=== PATIENT | female | born 1945 | race Caucasian/White ===

== ENCOUNTER 2023-12-22 11:17 | Outpatient (CLI) | payer OTHER ==
[2023-12-22 12:11] LABS: PH,URINE 7.5 (5.0-8.0); URINE APPEARANCE Cloudy; URINE BILIRRUBIN Negative (NEGATIVE); URINE BLOOD Negative; URINE COLOR Yellow; URINE GLUCOSE Negative (NEGATIVE); URINE LEUKOCYTE Large; URINE NITRATE Negative; URINE PROTEIN Negative (NEGATIVE); URINE UROBILINOGEN 0.2 E.U./dl
[2023-12-22 12:15] LABS: URINE BACTERIA 481.1 uL (0.0-1933); URINE EPITHELIAL CELLS 6.8 uL (0.0-38.8); URINE RBC 6.8 uL (0.0-20.8); URINE WBC 83.6 uL (0.0-23.2)
[2023-12-22 12:21] LABS: HEMATOCRIT 26.3 % (36.0-45.00); MEAN CORPUSCULAR HGB CONC 30.2 g/dl (32.0-36.0); PLATELET COUNT 339 K/uL (150-450); RED BLOOD COUNT 4.01 M/uL (4.00-6.00); RED CELL DISTRIBUTION WIDTH 21.2 % (11.5-14.5)
[2023-12-22 12:31] LABS: MEAN CORPUSCULAR HEMOGLOBIN 19.7 pg (27.00-32.0)
[2023-12-22 12:38] LABS: MEAN CELL VOLUME 65.7 fL (80.00-100.00)
[2023-12-22 12:46] LABS: HEMOGLOBIN 7.9 g/dL (12.0-15.00)
[2023-12-22 13:12] LABS: ALBUMIN 3.7 gm/dL (3.4-5.0); BILIRUBIN TOTAL 0.59 mg/dL (0.3-1.2); CALCIUM 8.7 mg/dL (8.5-10.1); CREATININE SERUM 0.58 mg/dL (0.55-1.02); GFR 100.28; GLOBULINA 3.6 G/DL (2.4-3.5); POTASSIUM 4.24 mEq/L (3.5-5.1); TOTAL PROTEIN 7.3 gm/dL (6.4-8.2)
[2023-12-22 13:37] LABS: T4 FREE 0.78 NG/ML (0.76-1.46); TSH 5.23 uIU/mL (0.358-3.74)
== END 2023-12-22 11:18 | disposition home or self-care (01) ==
LOC: LAB 11:17
PROVIDERS: ATTEND Internal Medicine
DX: D64.9 Anemia, unspecified (principal); E11.9 Type 2 diabetes mellitus without complications; N39.0 Urinary tract infection, site not specified; E78.00 Pure hypercholesterolemia, unspecified; E03.8 Other specified hypothyroidism; Z12.11 Encounter for screening for malignant neoplasm of colon; E55.9 Vitamin D deficiency, unspecified